=== PATIENT | female | born 1980 | race Caucasian/White ===

== ENCOUNTER → 2016-11-09 | Emergency (ER) | payer OTHER ==
--- NOTE | 2016-11-09 17:52 | ED NURSING NOTES ---
Clinical Report - Nurses [facility] [address] [place] [address] 11/09/2016 17:15 Patient: ATTILA MERCHANT TRIAGE Triage time 1735. Acuity: LEVEL 4. Chief Complaint: LEFT UPPER TOOTHACHE and SWELLING OF JAW / FACE. Alert. No acute distress. --17:44 Sangeeta Parker 17:41 11/09/16. BP: 128/75. HR: 90. RR: 16. O2 saturation: 98%. Temp: 98.6 F. Pain level now 11/17. --17:44 Sangeeta Parker. Weight: 106.5 kg. Height/Length: 67 inches. BMI: 36.8. --17:41 Sangeeta Parker. Medications None. --17:43 Sangeeta Parker. Allergies No Known Drug Allergy. --17:43 Sangeeta Parker. History Arrived by private vehicle. Historian: patient. Unaccompanied. Onset. (2 days ago). ( Pt paez a dental appointment Saturday am, feels she cannot make it through until then as her head is throbbing too). Treatment OUTDOOR STUDIES DIRECTOR: None. SOCIAL HX: Smoker- current status unknown. FALL RISK ASSESSMENT: Fall risk assessment completed. No fall risk identified. NUTRITIONAL RISK ASSESSMENT: The nutritional risk assessment revealed no deficiencies. FUNCTIONAL ASSESSMENT: Functional assessment: no impairments noted. LEARNING NEEDS ASSESSMENT: The learning needs assessment revealed no barriers. SKIN INTEGRITY ASSESSMENT: Skin integrity risk assessment completed. No skin integrity risk identified. --17:44 Sangeeta Parker. Interventions ID band on patient. To treatment room. --17:44 Sangeeta Parker. PHYSICAL ASSESSMENT Ambulatory to room. GENERAL / NEURO / PSYCH: Alert. Oriented X 4. Appears in no acute distress. HEENT: Pharynx within normal limits. Voice within normal limits. Dental tenderness. Mucous membranes are pink. RESPIRATORY: Respirations not labored. CVS: Capillary refill less than 2 seconds. SKIN: Skin is warm and dry. Normal skin turgor. --17:45 Sangeeta Parker. NURSING PROGRESS NOTES Reassurance given. Bed placed in lowest position. Brakes of bed on. Patient ready for evaluation- chart flagged. --17:45 Sangeeta Parker. DISPOSITION / DISCHARGE Departure time: 1807. Condition at departure: unchanged and stable. No learning barriers present. Discharge instructions provided and reviewed with the patient. Reviewed medication(s). Reviewed referrals. Patient verbalized understanding. Written instructions provided in Yakut. The patient was discharged by the physician chiropractor assistant. She was discharged home and unaccompanied at time of discharge. She left the Emergency Department ambulatory and via private vehicle. Patient driving. --18:12 Sangeeta Parker. Locked/Released at 11/09/2016 18:13 by Sangeeta Parker,
--- NOTE | 2016-11-09 17:52 | ED CLINICAL REPORT ---
Clinical Report - Physicians/Mid Levels [facility] [address] [place] [address] 11/09/2016 17:15 Patient: ATTILA MERCHANT Time Seen: 17:38 Daniele 2016. Arrived- By private vehicle. Historian- patient. HISTORY OF PRESENT ILLNESS Chief Complaint: DENTAL PAIN. 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 Pain described as moderate. The patient has had toothache, swelling of the face and jaw pain. (Left upper dental pain over the last5 days. Patient reports she hasn't looked at her teeth, she was a previous drug user. Reports been clean over the last 3 years. Denies fevers or chills. Hasn't taken Motrin, as well as doing saltwater occurrences. Patient when she has an appointment with her dentist on Saturday, 12 November.). REVIEW OF SYSTEMS No cough, chest pain or headache. All systems otherwise negative, except as recorded above. SOCIAL HISTORY History of drug use former meth use, clean for 3 years. ADDITIONAL NOTES The nursing notes have been reviewed. PHYSICAL EXAM Vital Signs: 11/09/2016 17:41 BP: 128/75. HR: 90. RR: 16. O2 saturation: 98%. Temp: 98.6 F. Appearance: Alert. No acute distress. Head: Mild swelling of the left mandible. Normal external inspection. No facial erythema. No maxillary swelling. ENT: Dental decay. Dental tenderness (To the left molar, with surrounding erythema and tenderness. No palpable mass.). Nose normal. Pharynx normal. No tonsillar exudate, trismus, nasal discharge or purulent nasal discharge. Normal ear exam. Neck: Trachea midline. No adenopathy. CVS: Normal heart rate and rhythm. Heart sounds normal. Respiratory: No respiratory distress. Breath sounds normal. Neuro: Oriented X 3. PROGRESS AND PROCEDURES Course of Care: Patient afebrile, with uvula midline, no signs of Kedar's angina. Able to tolerate by mouth. Has follow-up appointment. No palpable mass or drainage. Patient is stable. Patient/family counseled. Disposition: Discharged. CLINICAL IMPRESSION Moderate dental pain. INSTRUCTIONS Drink plenty of fluids. Prescription Medications: Amoxicillin 500 mg tablets: Take 1 orally every 8 hours for 10 days. Dispense thirty (30). No refills. OTC Medications: Take OTC medications according to label instructions. Available over the counter. Motrin IB 200 mg (available over the counter): take 4 orally every 8 hours for 5 days, as needed for pain Follow-up: Follow up with a specialist. (Electronically signed by Asuncion Alicea P.A.-C 11/09/2016 18:02)
--- NOTE | 2016-11-09 17:52 | ED NURSING NOTES ---
Clinical Report - Nurses [facility] [address] [place] [address] 11/09/2016 17:15 Patient: ATTILA MERCHANT TRIAGE Triage time 1735. Acuity: LEVEL 4. Chief Complaint: LEFT UPPER TOOTHACHE and SWELLING OF JAW / FACE. Alert. No acute distress. --17:44 Sangeeta Parker 17:41 11/09/16. BP: 128/75. HR: 90. RR: 16. O2 saturation: 98%. Temp: 98.6 F. Pain level now 11/17. --17:44 Sangeeta Parker. Weight: 106.5 kg. Height/Length: 67 inches. BMI: 36.8. --17:41 Sangeeta Parker. Medications None. --17:43 Sangeeta Parker. Allergies No Known Drug Allergy. --17:43 Sangeeta Parker. History Arrived by private vehicle. Historian: patient. Unaccompanied. Onset. (2 days ago). ( Pt paez a dental appointment Saturday am, feels she cannot make it through until then as her head is throbbing too). Treatment AIR SUPPORT OPERATIONS OPERATOR: None. SOCIAL HX: Smoker- current status unknown. FALL RISK ASSESSMENT: Fall risk assessment completed. No fall risk identified. NUTRITIONAL RISK ASSESSMENT: The nutritional risk assessment revealed no deficiencies. FUNCTIONAL ASSESSMENT: Functional assessment: no impairments noted. LEARNING NEEDS ASSESSMENT: The learning needs assessment revealed no barriers. SKIN INTEGRITY ASSESSMENT: Skin integrity risk assessment completed. No skin integrity risk identified. --17:44 Sangeeta Parker. Interventions ID band on patient. To treatment room. --17:44 Sangeeta Parker. PHYSICAL ASSESSMENT Ambulatory to room. GENERAL / NEURO / PSYCH: Alert. Oriented X 4. Appears in no acute distress. HEENT: Pharynx within normal limits. Voice within normal limits. Dental tenderness. Mucous membranes are pink. RESPIRATORY: Respirations not labored. CVS: Capillary refill less than 2 seconds. SKIN: Skin is warm and dry. Normal skin turgor. --17:45 Sangeeta Parker. NURSING PROGRESS NOTES Reassurance given. Bed placed in lowest position. Brakes of bed on. Patient ready for evaluation- chart flagged. --17:45 Sangeeta Parker. DISPOSITION / DISCHARGE Departure time: 1807. Condition at departure: unchanged and stable. No learning barriers present. Discharge instructions provided and reviewed with the patient. Reviewed medication(s). Reviewed referrals. Patient verbalized understanding. Written instructions provided in Yoruba. The patient was discharged by the physician assistant head cashier. She was discharged home and unaccompanied at time of discharge. She left the Emergency Department ambulatory and via private vehicle. Patient driving. --18:12 Sangeeta Parker. Locked/Released at 11/09/2016 18:13 by Sangeeta Parker,
--- NOTE | 2016-11-09 17:52 | ED CLINICAL REPORT ---
Clinical Report - Physicians/Mid Levels [facility] [address] [place] [address] 11/09/2016 17:15 Patient: ATTILA MERCHANT Time Seen: 17:38 Daniele 2016. Arrived- By private vehicle. Historian- patient. HISTORY OF PRESENT ILLNESS Chief Complaint: DENTAL PAIN. 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 Pain described as moderate. The patient has had toothache, swelling of the face and jaw pain. (Left upper dental pain over the last5 days. Patient reports she hasn't looked at her teeth, she was a previous drug user. Reports been clean over the last 3 years. Denies fevers or chills. Hasn't taken Motrin, as well as doing saltwater occurrences. Patient when she has an appointment with her dentist on Saturday, 12 November.). REVIEW OF SYSTEMS No cough, chest pain or headache. All systems otherwise negative, except as recorded above. SOCIAL HISTORY History of drug use former meth use, clean for 3 years. ADDITIONAL NOTES The nursing notes have been reviewed. PHYSICAL EXAM Vital Signs: 11/09/2016 17:41 BP: 128/75. HR: 90. RR: 16. O2 saturation: 98%. Temp: 98.6 F. Appearance: Alert. No acute distress. Head: Mild swelling of the left mandible. Normal external inspection. No facial erythema. No maxillary swelling. ENT: Dental decay. Dental tenderness (To the left molar, with surrounding erythema and tenderness. No palpable mass.). Nose normal. Pharynx normal. No tonsillar exudate, trismus, nasal discharge or purulent nasal discharge. Normal ear exam. Neck: Trachea midline. No adenopathy. CVS: Normal heart rate and rhythm. Heart sounds normal. Respiratory: No respiratory distress. Breath sounds normal. Neuro: Oriented X 3. PROGRESS AND PROCEDURES Course of Care: Patient afebrile, with uvula midline, no signs of Kedar's angina. Able to tolerate by mouth. Has follow-up appointment. No palpable mass or drainage. Patient is stable. Patient/family counseled. Disposition: Discharged. CLINICAL IMPRESSION Moderate dental pain. INSTRUCTIONS Drink plenty of fluids. Prescription Medications: Amoxicillin 500 mg tablets: Take 1 orally every 8 hours for 10 days. Dispense thirty (30). No refills. OTC Medications: Take OTC medications according to label instructions. Available over the counter. Motrin IB 200 mg (available over the counter): take 4 orally every 8 hours for 5 days, as needed for pain Follow-up: Follow up with a specialist. (Electronically signed by Asuncion Alicea P.A.-C 11/09/2016 18:02)
--- NOTE | 2016-11-09 18:13 | ED MED RECONCILIATION SUMMARY ---
Patient: ATTILA MERCHANT Medication Reconciliation Report [facility] VisitID: [id number] [place] [address] 36y, F Registration Date/Time: 11/09/2016 Weight: 106.5 kg Height/Length: 67 in. BMI: 36.8 ALLERGIES: No Known Drug Allergy The patient's Home Medications are listed below: NONE. The source(s) of the original Home Medication information: Not obtained. The following Medications were given to the patient in the Emergency Department: None. The following Medications were prescribed to the patient: Take OTC medications according to label instructions. Available over the counter. -- Asuncion Alicea, P.A.-C Motrin IB 200 mg (available over the counter): take 4 orally every 8 hours for 5 days, as needed for pain -- Asuncion Alicea, P.A.-C Amoxicillin 500 mg tablets: Take 1 orally every 8 hours for 10 days. Dispense thirty (30). No refills. -- Asuncion Alicea, P.A.-C
--- NOTE | 2016-11-09 18:13 | ED MAR SUMMARY ---
..... Medication Administration Record [facility] [address] [place], [place] [id number] Patient: ATTILA MERCHANT Visit ID: [id number] 36y, F Weight: 106.5 kg Height/Length: 67 in BMI: 36.8 ALLERGIES: No Known Drug Allergy
--- NOTE | 2016-11-09 18:13 | ED DISCHARGE INSTRUCTIONS ---
Patient: ATTILA MERCHANT General Instructions [facility] VisitID: [id number] [place] [address] 36y, F Registration Date/Time: 11/09/2016 Moderate dental pain. INSTRUCTIONS Drink plenty of fluids. Prescription Medications: Amoxicillin 500 mg tablets: Take 1 orally every 8 hours for 10 days. Dispense thirty (30). No refills. OTC Medications: Take OTC medications according to label instructions. Available over the counter. Motrin IB 200 mg (available over the counter): take 4 orally every 8 hours for 5 days, as needed for pain Follow-up: Follow up with a specialist. ADDITIONAL INFORMATION Dental Pain A crack or cavity in the tooth, which exposes the sensitive inner area of the tooth can cause tooth pain. An infection in the gum or the root of the tooth can cause pain and swelling. The pain is often made worse by drinking hot or cold fluids, or biting on hard foods. Pain may spread from the tooth to the ear or jaw on the same side. Home Care: Avoid hot and cold foods and liquids since your tooth may be sensitive to temperature changes. If your tooth is chipped or cracked, or if there is a large open cavity, apply OIL OF CLOVES (available [id number] in drug stores) directly to the tooth to reduce pain. Some pharmacies carry an [id number]-egdlyrv "toothache kit." This contains a paste, which can be applied over the exposed tooth to decrease sensitivity. A cold pack on your jaw over the sore area may help reduce pain. You may use acetaminophen (Tylenol) or ibuprofen (Motrin, Advil) to control pain, unless another medicine was prescribed. [ NOTE: If you have chronic liver or kidney disease or ever had a stomach ulcer or GI bleeding, talk with your doctor before using these medicines.] If you have signs of an infection, an antibiotic will be given. Take it as directed. Follow-Up as directed with a dentist. Your pain may go away with the treatment given. However, only a dentist can fully evaluate and treat the cause and prevent the pain from coming back again. TOOTHACHE IS A SIGN OF DISEASE IN YOUR TOOTH AND SHOULD BE EXAMINED AND TREATED BY A DENTIST. Get Prompt Medical Attention if any of the following occur: Your face becomes swollen or red Pain worsens or spreads to the neck Fever over 100.4 F (38.0 C) Unusual drowsiness; headache or stiff neck; weakness or fainting Pus drains from the tooth Difficulty swallowing or breathing Ibuprofen Oral tablet What is this medicine? IBUPROFEN (eye BYOO proe fen) is a non-steroidal anti-inflammatory drug (NSAID). It is used for dental pain, fever, headaches or migraines, osteoarthritis, rheumatoid arthritis, or painful monthly periods. It can also relieve minor aches and pains caused by a cold, flu, or sore throat. How should I use this medicine? Take this medicine by mouth with a glass of water. Follow the directions on the prescription label. Take this medicine with food if your stomach gets upset. Try to not lie down for at least 10 minutes after you take the medicine. Take your medicine at regular intervals. Do not take your medicine more often than directed. A special MedGuide will be given to you by the pharmacist with each prescription and refill. Be sure to read this information carefully each time. Talk to your systems software specialist regarding the use of this medicine in children. Special care may be needed. What side effects may I notice from receiving this medicine? Side effects that you should report to your doctor or health personal care attendant as soon as possible: allergic reactions like skin rash, itching or hives, swelling of the face, lips, or tongue black or bloody stools, blood in the urine or in vomit breathing problems changes in vision chest pain general ill feeling or flu-like symptoms nausea or vomiting redness, blistering, peeling or loosening of the skin, including inside the mouth slurred speech or weakness on one side of the body stomach pain unexplained weight gain or swelling unusually weak or tired yellowing of eyes or skin Side effects that usually do not require medical attention (report to your doctor or health personal care attendant if they continue or are bothersome): constipation or diarrhea dizziness gas or heartburn stomach upset What may interact with this medicine? Do not take this medicine with any of the following medications: cidofovir ketorolac methotrexate pemetrexed This medicine may also interact with the following medications: alcohol aspirin diuretics lithium other drugs for inflammation like prednisone warfarin What if I miss a dose? If you miss a dose, take it as soon as you can. If it is almost time for your next dose, take only that dose. Do not take double or extra doses. Where should I keep my medicine? Keep out of the reach of children. Store at room temperature between 15 and 30 degrees C (59 and 86 degrees F). Keep container tightly closed. Throw away any unused medicine after the expiration date. What should I tell my health care provider before I take this medicine? They need to know if you have any of these conditions: asthma cigarette smoker drink more than 3 alcohol containing drinks a day heart disease or circulation problems such as heart failure or leg edema (fluid retention) high blood pressure kidney disease liver disease stomach bleeding or ulcers an unusual or allergic reaction to ibuprofen, aspirin, other NSAIDS, other medicines, foods, dyes, or preservatives or trying to get breast-feeding What should I watch for while using this medicine? Tell your doctor or healthcare professional if your symptoms do not start to get better or if they get worse. This medicine does not prevent heart attack or stroke. In fact, this medicine may increase the chance of a heart attack or stroke. The chance may increase with longer use of this medicine and in people who have heart disease. If you take aspirin to prevent heart attack or stroke, talk with your doctor or health personal care attendant. Do not take other medicines that contain aspirin, ibuprofen, or naproxen with this medicine. Side effects such as stomach upset, nausea, or ulcers may be more likely to occur. Many medicines available without a prescription should not be taken with this medicine. This medicine can cause ulcers and bleeding in the stomach and intestines at any time during treatment. Ulcers and bleeding can happen without warning symptoms and can cause . To reduce your risk, do not smoke cigarettes or drink alcohol while you are taking this medicine. You may get drowsy or dizzy. Do not drive, use machinery, or do anything that needs mental alertness until you know how this medicine affects you. Do not stand or sit up quickly, especially if you are an older patient. This reduces the risk of dizzy or fainting spells. This medicine can cause you to bleed more easily. Try to avoid damage to your teeth and gums when you brush or floss your teeth. You have been given the following additional information: Dental Pain Ibuprofen Oral tablet (Electronically signed by Asuncion Alicea P.A.-C 11/09/2016 18:02)
--- NOTE | 2016-11-09 18:13 | ED DISCHARGE INSTRUCTIONS ---
Patient: ATTILA MERCHANT General Instructions [facility] VisitID: [id number] [place] [address] 36y, F Registration Date/Time: 11/09/2016 Moderate dental pain. INSTRUCTIONS Drink plenty of fluids. Prescription Medications: Amoxicillin 500 mg tablets: Take 1 orally every 8 hours for 10 days. Dispense thirty (30). No refills. OTC Medications: Take OTC medications according to label instructions. Available over the counter. Motrin IB 200 mg (available over the counter): take 4 orally every 8 hours for 5 days, as needed for pain Follow-up: Follow up with a specialist. ADDITIONAL INFORMATION Dental Pain A crack or cavity in the tooth, which exposes the sensitive inner area of the tooth can cause tooth pain. An infection in the gum or the root of the tooth can cause pain and swelling. The pain is often made worse by drinking hot or cold fluids, or biting on hard foods. Pain may spread from the tooth to the ear or jaw on the same side. Home Care: Avoid hot and cold foods and liquids since your tooth may be sensitive to temperature changes. If your tooth is chipped or cracked, or if there is a large open cavity, apply OIL OF CLOVES (available [id number] in drug stores) directly to the tooth to reduce pain. Some pharmacies carry an [id number] "toothache kit." This contains a paste, which can be applied over the exposed tooth to decrease sensitivity. A cold pack on your jaw over the sore area may help reduce pain. You may use acetaminophen (Tylenol) or ibuprofen (Motrin, Advil) to control pain, unless another medicine was prescribed. [ NOTE: If you have chronic liver or kidney disease or ever had a stomach ulcer or GI bleeding, talk with your doctor before using these medicines.] If you have signs of an infection, an antibiotic will be given. Take it as directed. Follow-Up as directed with a dentist. Your pain may go away with the treatment given. However, only a dentist can fully evaluate and treat the cause and prevent the pain from coming back again. TOOTHACHE IS A SIGN OF DISEASE IN YOUR TOOTH AND SHOULD BE EXAMINED AND TREATED BY A DENTIST. Get Prompt Medical Attention if any of the following occur: Your face becomes swollen or red Pain worsens or spreads to the neck Fever over 100.4 F (38.0 C) Unusual drowsiness; headache or stiff neck; weakness or fainting Pus drains from the tooth Difficulty swallowing or breathing Ibuprofen Oral tablet What is this medicine? IBUPROFEN (eye BYOO proe fen) is a non-steroidal anti-inflammatory drug (NSAID). It is used for dental pain, fever, headaches or migraines, osteoarthritis, rheumatoid arthritis, or painful monthly periods. It can also relieve minor aches and pains caused by a cold, flu, or sore throat. How should I use this medicine? Take this medicine by mouth with a glass of water. Follow the directions on the prescription label. Take this medicine with food if your stomach gets upset. Try to not lie down for at least 10 minutes after you take the medicine. Take your medicine at regular intervals. Do not take your medicine more often than directed. A special MedGuide will be given to you by the pharmacist with each prescription and refill. Be sure to read this information carefully each time. Talk to your asset recovery specialist regarding the use of this medicine in children. Special care may be needed. What side effects may I notice from receiving this medicine? Side effects that you should report to your doctor or health direct care worker as soon as possible: allergic reactions like skin rash, itching or hives, swelling of the face, lips, or tongue black or bloody stools, blood in the urine or in vomit breathing problems changes in vision chest pain general ill feeling or flu-like symptoms nausea or vomiting redness, blistering, peeling or loosening of the skin, including inside the mouth slurred speech or weakness on one side of the body stomach pain unexplained weight gain or swelling unusually weak or tired yellowing of eyes or skin Side effects that usually do not require medical attention (report to your doctor or health direct care worker if they continue or are bothersome): constipation or diarrhea dizziness gas or heartburn stomach upset What may interact with this medicine? Do not take this medicine with any of the following medications: cidofovir ketorolac methotrexate pemetrexed This medicine may also interact with the following medications: alcohol aspirin diuretics lithium other drugs for inflammation like prednisone warfarin What if I miss a dose? If you miss a dose, take it as soon as you can. If it is almost time for your next dose, take only that dose. Do not take double or extra doses. Where should I keep my medicine? Keep out of the reach of children. Store at room temperature between 15 and 30 degrees C (59 and 86 degrees F). Keep container tightly closed. Throw away any unused medicine after the expiration date. What should I tell my health care provider before I take this medicine? They need to know if you have any of these conditions: asthma cigarette smoker drink more than 3 alcohol containing drinks a day heart disease or circulation problems such as heart failure or leg edema (fluid retention) high blood pressure kidney disease liver disease stomach bleeding or ulcers an unusual or allergic reaction to ibuprofen, aspirin, other NSAIDS, other medicines, foods, dyes, or preservatives or trying to get breast-feeding What should I watch for while using this medicine? Tell your doctor or healthcare professional if your symptoms do not start to get better or if they get worse. This medicine does not prevent heart attack or stroke. In fact, this medicine may increase the chance of a heart attack or stroke. The chance may increase with longer use of this medicine and in people who have heart disease. If you take aspirin to prevent heart attack or stroke, talk with your doctor or health direct care worker. Do not take other medicines that contain aspirin, ibuprofen, or naproxen with this medicine. Side effects such as stomach upset, nausea, or ulcers may be more likely to occur. Many medicines available without a prescription should not be taken with this medicine. This medicine can cause ulcers and bleeding in the stomach and intestines at any time during treatment. Ulcers and bleeding can happen without warning symptoms and can cause . To reduce your risk, do not smoke cigarettes or drink alcohol while you are taking this medicine. You may get drowsy or dizzy. Do not drive, use machinery, or do anything that needs mental alertness until you know how this medicine affects you. Do not stand or sit up quickly, especially if you are an older patient. This reduces the risk of dizzy or fainting spells. This medicine can cause you to bleed more easily. Try to avoid damage to your teeth and gums when you brush or floss your teeth. You have been given the following additional information: Dental Pain Ibuprofen Oral tablet (Electronically signed by Asuncion Alicea P.A.-C 11/09/2016 18:02)
--- NOTE | 2016-11-09 18:13 | ED MAR SUMMARY ---
..... Medication Administration Record [facility] [address] [place] [place], [place] [id number] Patient: ATTILA MERCHANT Visit ID: [id number] 36y, F Weight: 106.5 kg Height/Length: 67 in BMI: 36.8 ALLERGIES: No Known Drug Allergy
--- NOTE | 2016-11-09 18:13 | ED MED RECONCILIATION SUMMARY ---
Patient: ATTILA MERCHANT Medication Reconciliation Report [facility] VisitID: [id number] [place] [address] 36y, F Registration Date/Time: 11/09/2016 Weight: 106.5 kg Height/Length: 67 in. BMI: 36.8 ALLERGIES: No Known Drug Allergy The patient's Home Medications are listed below: NONE. The source(s) of the original Home Medication information: Not obtained. The following Medications were given to the patient in the Emergency Department: None. The following Medications were prescribed to the patient: Take OTC medications according to label instructions. Available over the counter. -- Asuncion Alicea, P.A.-C Motrin IB 200 mg (available over the counter): take 4 orally every 8 hours for 5 days, as needed for pain -- Asuncion Alicea, P.A.-C Amoxicillin 500 mg tablets: Take 1 orally every 8 hours for 10 days. Dispense thirty (30). No refills. -- Asuncion Alicea, P.A.-C
== END ==
LOC: ED SRH 17:13
DX: K08.89 Other specified disorders of teeth and supporting structures (principal)